=== PATIENT | female | born 1995 | race Caucasian/White ===

== ENCOUNTER 2025-01-01 15:58 | Inpatient (IN) | payer OTHER, SELFPAY ==
[2025-01-01] VITALS (64 sets, daily range): BP systolic 62–137; BP diastolic 26–84; PULSE 76–158; TEMP 36.3–36.7; O2SAT 93–100; BMI 38.0
--- OUTSIDE RECORDS SUMMARY | 2025-01-01 16:03 | XMS_ITS | Data Portability ---
Author Organization [facility] Address [address] [place] [address] Care Team Providers Care Chief Librarian Branch Or Department Name Role Phone TRACE RAMIREZ Primary Care Provider Unavailab le Assessment Encounter Date Assessment Date Assessment LastModified by Organization Details LastModified Time 03/28/2024 03/28/[address] Jacobo is her gyne. Eye exam: UTD jul 2023 Dental Exam UTD every 6 months labs were completed last year and normal will request records from [facility]. [email or web address] Not available 03/28/2024 09:14:08 Plan of Treatment Reminders Order Date Submit Date Provider Last Modified By Organization Details Last Modified Time Details Appointments None recorded. Lab celiac disease IgA + HLA typing + serology panel, blood or tissue 2023 024 [address] [facility], [address], [address] [address], [place], [address], 16:36:37 Referral None recorded. Procedures None recorded. Surgeries None recorded. Imaging None recorded. Medication Orders None recorded. Patient TargetsNo targets recorded. Patient InstructionsNo instructions recorded. Reason for Referral None Reported. Results Created Date Observation Date Name Description Value Unit Range Abnormal Flag Note LastModifiedBy Organization Detail LastModifiedTime 03/31/2004/01/2024 FREDERIC C DISEA SE COMPR EHENS RUSLAN deamidated gliadin abs, IgA 2 units 0-19 Negat ruslan 0 - 19 Weak Posit ruslan 20 - 30 Moder ate to Stron g Posit ruslan >30 Not Available [facility] ([facility]) [address] [facility], [place], [address], 04/03/2024 16:36:37 03/31/20 24 04/01/2024 FREDERIC C DISEA SE COMPR EHENS RUSLAN deamidated gliadin abs, IgG 2 units 0-19 Negat ruslan 0 - 19 Weak Posit ruslan 20 - 30 Moder ate to Stron g Posit ruslan >30 Not Available [facility] ([facility]) [address] [place], [address], 04/03/2024 16:36:37 03/31/20 24 04/01/2024 FREDERIC C DISEA SE COMPR EHENS RUSLAN T-transgluta minase (ttg) IgA <2 U/mL 0-3 Negat ruslan 0 - 3 Weak Posit ruslan 4 - 10 Posit ruslan >10 Tissu e Trans gluta indira e (tTG) has been ident ified as the endom ysial antig en. Studi es have demon str- ated that endom ysial IgA antib odies have over 99% speci ficit y for glute n sensi tive enter opath y. Not Available [facility] ([facility]) [address] [facility], [place], [address], 04/03/2024 16:36:37 03/31/20 24 04/01/2024 FREDERIC C DISEA SE COMPR EHENS RUSLAN T-transgluta minase (ttg) IgG 2 U/mL 0-5 Negat ruslan 0 - 5 Weak Posit ruslan 6 - 9 Posit ruslan >9 Not Available [facility] ([facility]) [address] [facility], [place], [address], 04/03/2024 16:36:37 03/31/20 24 04/01/2024 FREDERIC C DISEA SE COMPR EHENS RUSLAN immunoglobul in A, qn, serum 120 mg/dL 87-352 Not Available [facility] ([facility]) [address] [place], [address], 04/03/2024 16:36:37 03/31/20 24 04/03/2024 FREDERIC C DISEA SE COMPR EHENS RUSLAN endomysial antibody IgA NEGATI VE negati ve Not Available [facility] ([facility]) [address] [facility], [place], [address], 04/03/2024 16:36:37 Result Notes None recorded. Problems Name Problem SNOMED Code Status Onset Date Resolution Date Notes Provider Name and Address Organization Details Recorded Time Body mass index 25-29 - overweight 102826735 Active 024 LEATHA Adorno Attn: Mitra g,[address] [facility], [place], [address], [facility] 4 09:04:51 Problem Notes None recorded. Procedures Surgical History Date Name Laterality Status Provider Name and Address Organization Details Recorded Time Tonsillectomy completed Dimitri Emerson MA [facility] 03/28/2024 09:00:41 Imaging Results None recorded. Procedure Notes None recorded. Medical Equipment None Reported. Allergies No known drug allergies Medications Not known to be on any medication Vitals Date Recorded Body weight Body mass index (BMI) Body height Respiratory rate Oxygen saturation Oxygen saturation in Arterial blood by Pulse oximetry Heart rate Systolic blood pressure Diastolic blood pressure Provider Name and Address Organization Details Last Updated DateTime 4 35616.9 5 g 27.4 kg/m2 170.18 cm 18 /min 99 % 99 % 75 /min 122 mm[Hg] 82 mm[Hg] Dimitri Emerson MA [facility] 4 09:02:53 Date Recorded Systolic blood pressure Diastolic blood pressure Provider Name and Address Organization Details Last Updated DateTime 03/28/2024 104 mm[Hg] 80 mm[Hg] LEATHA Adorno Attn: Accounting,[address] [facility], [place], [address], [facility] 03/28/2024 09:21:19 Social History Question Answer Notes LastModified by Organizat ion Details LastModified Time Tobacco Smoking Status Never Smoker Dimitri Emerson MA null, [facility] 03/28/2024 09:00:09 Are You Blind Or Do You Have Difficulty Seeing? No Readers Information not available 03/28/2024 What Is Your Level Of Caffeine Consumption? Occasional Information not available 03/28/2024 In The 14 Days Before Symptom Onset, Have You Had Close Contact With A Laboratory-confir med COVID-19 While That Case Was Ill? No Information not available 03/28/2024 In The 14 Days Before Symptom Onset, Have You Had Close Contact With A Person Who Is Under Investigation For COVID-19 While That Person Was Ill? No Information not available 03/28/2024 Have You Been To An Area Known To Be High Risk For COVID-19? No Information not available 03/28/2024 Are You Deaf Or Do You Have Serious Difficulty Hearing? No Information not available 03/28/2024 What Type Of Diet Are You Following? REGULAR Information not available 03/28/2024 Are There Any Guns Present In Your Home? No Information not available 03/28/2024 What Was The Date Of Your Most Recent Tobacco Screening? 03/28/2024 Information not available 03/28/2024 Do You Use Your Seat Belt Or Car Seat Routinely? Yes Information not available 03/28/2024 Do You Have Smoke And Carbon Monoxide Detectors In Your Home? Yes Information not available 03/28/2024 Do You Use Sunscreen Routinely? Yes Information not available 03/28/2024 Has Tobacco Cessation Counseling Been Provided? Yes Information not available 03/28/2024 On What Date Was Tobacco Cessation Counseling Provided? 03/28/2024 Information not available 03/28/2024 Sex: Unknown Functional Status Question Answer Note LastModified by Organizat ion Details LastModified Time Do you use any illicit or recreational drugs? No Information not available 03/28/2024 Do you or have you ever used any other forms of tobacco or nicotine? No Information not available 03/28/2024 What is your level of alcohol consumption? Occasional Information not available 03/28/2024 Are you able to care for yourself? Yes Information n ot available 03/28/2024 What is your exercise level? Occasional Information not available 03/28/2024 Mental Status None recorded. Family History Relationship Description Onset Age of this Age Resolved Age Notes LastModified by Organization Details LastModified Time Sister Hypertensive disorder [email or web address] Not available 2023 08:59:51 Sister Polycystic ovary syndrome [email or web address] Not available 2023 08:59:59 Sister Asthma [email or web address] Not available 03/28/2024 09:06:06 Father Hypertensive disorder tcarterma Not available 2023 08:59:51 Mother Malignant tumor of breast tcarterma Not available 2023 09:06:14 Mother Malignant tumor of cervix tcarterma Not available 2023 09:06:35 Medical History Condition Response Anxiety Disorder Y GI Problems Y Gynecological History Statement/Question Response Flow Heavy Date of LMP 03/28/2024 Menses Monthly Y Duration of Flow (days) 7 Current Control Method None LMP Approximate Obstetrics History GPAL:G 0 P 0 0 0 0 Past Encounters Encounter ID Performer Location Encounter Start Date Encounter Closed Date Diagnosis/Indication Diagnosis SNOMED-CT Code Diagnosis ICD10 Code Diagnosis Note [id number] Williams Johnson MD [facility] [place] [address] [place] [address] 03/28/2024 08:51:02 03/28/2024 10:26:18 Body mass index 25-29 - overweight 468080624 Z68.27 bmi 27.4 Adult heal th examination 043780670 Z00.00 new pt wellness completed. Irritable bowel syndrome with diarrhea 841288319 K58.0 pt is interested in celiac screening. all other labs are UTD Health Concerns Section Related Observation LastModified by Organization Detai ls LastModified Time None Recorded Concern Status LastModified by Organization Details LastModified Time None Recorded Advance Directives Directive None Recorded Payers Encounter Date Sequence Insurance Name Policy Number Policy Lord Covered Member ID Lord Member ID Guarantor Name 03/28/2024 1 [place] [id number] [employer] ([employer]) [id number] Patience Hernandez [id number] Patience Christiansone Notes Date Note Type Note Provider Name and Address Organization Details Recorded Time 03/28/2024 text/html pt is here to establish with new PCP. She previously saws Philomena Murguia NP at [facility]. LEATHA Adorno Attn: Accounting,[address] [facility], [place], [address], [facility] 03/28/2024 09:31:31 OBGyn Episode No OBEpisode recorded.
--- OUTSIDE RECORDS SUMMARY | 2025-01-01 16:03 | XMS_ITS | Data Portability ---
Author Organization [facility], Main Office Address [address] [place] [address] Assessment Encounter Date Assessment Date Assessment LastModified by Organization Details LastModified Time 03/17/2023 03/17/2023 CECILIA OLEARY- 03/17/23 Call office if worse, ER for life-threatening illness RTC in 1 year and p.r.n. She voices understanding of plan and agree [email or web address] Not available 03/17/2023 17:18:25 Plan of Treatment Reminders Order Date Submit Date Provider Last Modified By Organization Details Last Modified Time Details Appointments None recorded . Lab lipid panel, serum 023 03/17/20 [place] [id number] [facility], [address], [place], [address], 3 08:49:25 HbA1c (hemoglo bin A1c), blood 023 03/17/20 [place] [address] [facility], [address], [place], [address], 3 08:49:25 CMP, serum or plasma 023 03/17/20 [place] [address] [facility], [address], [place], [address], 3 08:49:25 CBC w/ auto diff 023 03/17/20 [place] [facility], [address], [place], [address], 03:19:50 Referral None recorded . Procedures None recorded . Surgeries None recorded . Imaging None recorded . Medication Orders None recorded . Patient TargetsNo targets recorded. Patient Instructions Encounter Date Encounter Id Patient Instructions Last Modified By Organization Details Last Modified Time 03/17/2023 [id number] INFLUENZA VACCIN E TD/TDAP Recommended today, patient declined Ordered P atient will get at local pharmacy/health department MAMMOGRAM Recommended today, but patient declined Ordered N o screening indicated at this time/ no family history CERVICAL SCREENING/PELVIC EXAMINATION No screening necessary patient is up to date COLORECTAL SCREENING Recommended today, but patient declined Ordered C olonoscopy declined. Cologuard ordered No screening necessary until age 45 DEPRESSION SCREENING Negative BMI Overweight Appropr iate NUTRITION Continue healthy eating & exercise PHYSICAL ACTIVITY Appropriate Recommendation of 10-20 minutes of activity that causes mild breathlessness daily Recommendati on of 30 minutes of daily activity VISION Ordered Recommende d today ALCOHOL USE No alcohol use Occasional/Soc ial Use TOBACCO USE non smoker SEXUALLY ACTIVE Yes, Patient is in monogamous relationship GLUCOSE SCREENING Ordered LIPID SCREENING Ordered [email or web address] Not available 03/17/2023 17:19:39 Reason for Referral None Reported. Results Created Date Observation Date Name Description Value Unit Range Abnormal Flag Note LastModifiedBy Organization Detail LastModifiedTime Result Notes None recorded. Problems Name Problem SNOMED Code Status Onset Date Resolution Date Notes Provider Name and Address Organization Details Recorded Time Anxiety 24436418 Active 023 Philomena Murguia, RADHA-Carmen [address] [facility] [address], [place], [address] , [facility] [employer] [facility] 03/14/2023 20:09:41 Problem Notes None recorded. Procedures Surgical History Date Name Laterality Status Provider Name and Address Organization Details Recorded Time tonsilectom y/adenoids completed Not Available [facility] 10/22/2022 00:57:12 Imaging Results None recorded. Procedure Notes None recorded. Medical Equipment None Reported. Allergies No known drug allergies Medications Name Sig Start Date Stop Date Status Note LastModified by Organization Details LastModified Time mupirocin 2 % topical ointment APPLY TOPICALLY TO THE AFFECTED AREA TWICE DAILY 03/17 completed Not Available Not Available Not Available methylpredn isolone 4 mg tablets in a dose pack FOLLOW PACKAGE DIRECTION S 02/11 completed Not Available Not Available Not Available clonazepam 0.25 mg disintegrat ing tablet Place 1 tablet every day by transling ual route as needed. 03/17 completed Not Available Not Available Not Available ID NOW COVID-19 Test Kit TEST DIRECTED TODAY 02/11 completed Not Available Not Available Not Available Vitals Date Recorded Body mass index (BMI) Body height Oxygen saturation Oxygen saturation in Arterial blood by Pulse oximetry Heart rate Body temperature Body weight Systolic blood pressure Diastolic blood pressure Provider Name and Address Organization Details Last Updated DateTime 2 27.4 kg/m2 170.18 cm 98 % 98 % 96 /min 97.8 [degF] 34130.6 6 g 122 mm[Hg] 78 mm[Hg] Not Available [facility] 3 00:57:41 Date Recorded Body weight Body mass index (BMI) Body height Body temperature Heart rate Oxygen saturation Oxygen saturation in Arterial blood by Pulse oximetry Systolic blood pressure Diastolic blood pressure Provider Name and Address Organization Details Last Updated DateTime 3 90706.2 6 g 27.6 kg/m2 170.18 cm 98 [degF] 72 /min 99 % 99 % 124 mm[Hg] 72 mm[Hg] Charito Burt MA [place] [facility] 3 16:00:39 Social History Question Answer Notes LastModified by Organizat ion Details LastModified Time Tobacco Smoking Status Never Smoker Not Available [facility] 10/22/2022 00:57:05 What Is Your Level Of Caffeine Consumption? Occasional Information not available 03/17/2023 In The 14 Days Before Symptom Onset, Have You Had Close Contact With A Laboratory-confi rmed COVID-19 While That Case Was Ill? No Had Covid 01/21/2022 [id number] Information not available 10/22/2022 In The 14 Days Before Symptom Onset, Have You Had Close Contact With A Person Who Is Under Investigation For COVID-19 While That Person Was Ill? No MIGRATION.[id number] [id number] Information not available 10/22/2022 What Type Of Diet Are You Following? REGULAR MIGRATION.20844 79262 Information not available 10/22/2022 What Is The Highest Grade Or Level Of School You Have Completed Or The Highest Degree You Have Received? UH80023-0 MIGRATION.81808 84473 Information not available 10/22/2022 Have There Been Any Changes To Your Family Or Social Situation? No Information not available 03/17/2023 What Is The Fluoride Status Of Your Home? Unknown MIGRATION.79076 [id number] Information not available 10/22/2022 Are There Any Guns Present In Your Home? Yes MIGRATION.09229 75223 Information not available 10/22/2022 Do You Use Insect Repellent Routinely? No MIGRATION.14516 77011 Information not available 10/22/2022 Where Do You Live? SingleLevelHouse MIGRATION.88261 27079 Information not available 10/22/2022 What Was The Date Of Your Most Recent Tobacco Screening? 03/17/2023 Information not available 03/17/2023 Do You Have Any Pets? Yes MIGRATION.42117 30419 Information not available 10/22/2022 What Is Your Relationship Status? MIGRATION.35744 71705 Information not available 10/22/2022 Do You Use Your Seat Belt Or Car Seat Routinely? Yes MIGRATION.36183 51738 Information not available 10/22/2022 Do You Have Smoke And Carbon Monoxide Detectors In Your Home? Yes MIGRATION.07281 57718 Information not available 10/22/2022 Are You Passively Exposed To Smoke? No MIGRATION.82985 43869 Information not available 10/22/2022 Are There Any Smokers In Your House? No MIGRATION.82058 13976 Information not available 10/22/2022 Do You Use Sunscreen Routinely? Yes MIGRATION.34674 98709 Information not available 10/22/2022 Have You Recently Traveled Abroad? No [place]- Came Back 01-21-22 Information not available 03/17/2023 Do You Have Any Dietary Restrictions? No MIGRATION.78913 11296 Information not available 10/22/2022 Sex: Unknown Functional Status Question Answer Note LastModified by Organizat ion Details LastModified Time Do you use any illicit or recreational drugs? No MIGRATION.5706106 026 Information not available 10/22/2022 Do you or have you ever used any other forms of tobacco or nicotine? No Information not available 03/17/2023 What is your level of alcohol consumption? 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 Heavy MIGRATION.5223889 026 Information not available 10/22/2022 Mental Status Question Answer Note LastModified by Organizat ion Details LastModified Time Do you feel stressed (tense, restless, nervous, or anxious, or unable to sleep at night)? [id number] MIGRATION.[id number] 6 Information not available 10/22/2022 Family History Relationship Description Onset Age of this Age Resolved Age Notes LastModified by Organization Details LastModified Time Mother Malignant tumor of cervix [email or web address] Not available 2022 15:55:15 Mother Malignant tumor of breast [email or web address] Not available 2022 15:55:15 Father Hypertensive disorder [id number] Not available 10/22/2022 00:57:14 Sister Asthma [id number] Not available 10/22/2022 00:57:15 Medical History Condition Response NERVE DISEASE N BLINDNESS N RHEUMATIC FEVER N KIDNEY STONES N BLADDER PROBLEMS N MRSA N OTHER # 1 N POLIO N LUNG DISEASE/DISORDER N HISTORY OF DRUG ABUSE N COPD N RADIATION / CHEMOTHERAPY N Other # 2 N BLOOD DISEASES N EAR OR HEARING PROBLEMS N MUMPS N SHINGLES N BOWEL PROBLEMS N DEPRESSION (INCLUDING POST ) N STROKE/TIA N ULCERS N BENIGN PROSTATIC HYPERPLASIA N MEASLES N HYPOTENSION N MYOCARDIAL INFARCTION N OBESITY N GERD/NAUSEA N ANEURYSM N URINARY/BLADDER/KIDNEY PROBLEMS N CORONARY ARTERY DISEASE (CAD) N ADDICTION CONCERNS N ENDOMETRIOSIS N Impotence N USE OF BLOOD THINNERS N SKIN PROBLEMS N GASTROINTESTINAL DISORDER N PERIPHERAL VASCULAR DISEASE N MUSCLE,JOINT OR BONE PROBLEMS N GASTROINTESTINAL BLEEDING N BLOOD CLOTS N ASTHMA N CATARACTS N ERECTILE DYSFUNCTION N VARICOSITIES N GI PROBLEMS N Low Testosterone N INFERTILITY N AIDS/HIV N CHEMOTHERAPY / RADIATION N LIVER DISEASE N MALE HYPOGONADISM N HYPERTENSION N Deficiency N TOURETTE'S N ANXIETY DISORDER N BLOOD TRANSFUSION N ANEMIA/BLOOD DISORDER N CHRONIC EAR INFECTIONS N BRONCHITIS N TUBERCULOSIS N GLAUCOMA N FOOT PROBLEM N DIVERTICULITIS N CHICKENPOX N SLEEP APNEA N INFECTIOUS DISEASE N HEART ARRHYTHMIA N PROSTATE N INSOMNIA N HIGH CHOLESTEROL / HYPERLIPIDEMIA N HYPERTHYROIDISM N EYE PROBLEMS N EDEMA N CHRONIC PAIN SYNDROME N HYPOTHYROIDISM N CAROTID BLOCKAGE N CONSTIPATION N BACK / NECK PROBLEMS N HAVE YOU BEEN HOSPITALIZED OR SEEN IN [facility] IN THE PAST YEAR ? N ATHEROSCLEROSIS N BREAST PROBLEMS N DIALYSIS N ECZEMA N OSTEOPOROSIS N ARTHRITIS N NO SIGNIFICANT PAST MEDICAL HISTORY N APPENDICITIS N DIABETES, TYPE N BAD TEETH N ENT N HEARTBURN / REFLUX N AUTISM SPECTRUM DISORDER (ASD) N HEPATITIS / LIVER DISEASE N GOUT N SLEEP DISORDER N ALZHEIMER'S DISEASE N Brain Problems N HERPES N DEMENTIA N HEADACHES/MIGRAINES N SEIZURES/EPILEPSY N VASCULAR DISEASE N PACEMAKER N Blood Disorder N DIZZINESS N HEART DISEASE/HEART PROBLEMS N KIDNEY DISEASE N MULTIPLE SCLEROSIS N CARDIAC ARRHYTHMIA N CANCER: SPECIFY N ATRIAL FIBRILLATION N Gall Stones N PULMONARY EMBOLISM N AUTOIMMUNE DISEASE N Gynecological HistoryNo gynecological history recorded. Obstetrics History GPAL:G 0 P 0 0 0 0 Immunizations Vaccine Type Date Status Note Provider Nam e and Address Organization Details Recorded Time COVID-19, mRNA, LNP-S, PF, 30 mcg/0.3 mL dose 12/12/2020 completed Not Available [facility] 3 00:59:20 COVID-19, mRNA, LNP-S, PF, 30 mcg/0.3 mL dose 11/17/2020 completed Not Available [facility] 3 00:59:20 Past Encounters Encounter ID Performer Location Encounter Start Date Encounter Closed Date Diagnosis/Indication Diagnosis SNOMED-CT Code Diagnosis ICD10 Code Diagnosis Note [id number] Linnette brown MD [facility] Internal Med Valentín henderson [facility] [address] [place] [id number] 02/11/2022 00:00:00 02/11/2022 17:28:21 [id number] Linnette brown MD [facility] Internal Med Valentín henderson [facility] [address] [id number] 03/17/2023 15:49:23 03/17/2023 16:36:37 Adult health examination 060454895 Z00.01 Anxiety 60057242 F41.9 could not tolerate multiple SSRIs, tricyclics , or SNRIsOn Klonopin for rare p.r.n. use -she is aware of side effects, risks, and benefitsNo alcohol, driving, or mixing with other sedating medsCall office if any change in mood or behaviorSh e declines psychiatry referral todayCouns clotilde cole Cholesterol screening 27 2454349 Z13.220 Diabetes m ellitus screening 439675034 Z13.1 Depression screening 171 414288 Z13.31 Body mass index 25-29 - overweight 276072888 Z68.27 recommend healthy, well balanced mealsfocus on lean meats, fresh vegetables , fresh fruits, whole grainsredu ce fast/proce ssed foods or eating out to no more than 1-2 times per weekaim to get 30 min of exercise most days of the week- walking is a great choicealso recommend resistance training 2-3 times per week Health Concerns Section Related Observation LastModified by Organization Detai ls LastModified Time None Recorded Concern Status LastModified by Organization Details LastModified Time None Recorded Advance Directives Directive None Recorded Payers Encounter Date Sequence Insurance Name Policy Number Policy Lord Covered Member ID Lord Member ID Guarantor Name 03/17/2023 1 [facility] ([facility]) Jimmy Hernandez [id number] Patience Hernandez Notes Date Note Type Note Provider Name and Address Organization Details Recorded Time 03/17/2023 text/html Patience presents today for her annual wellness exam. She reports overall she has been feeling well and denies any new complaints. Her anxiety is well controlled off medication. She tells me she has not needed to take Klonopin since last summer. She denies any SI or HI today. She tells me she has backed off her HIT draining. She was doing this 5 days a week and now she has backed off to 3. The other 2 days she has been doing some weight training. She has been really enjoying this and has been feeling good since she added some strength training. She is due for labs. Philomena Murguia, MEDICAL TECH-C [address] [facility], [place], [address], [facility] [employer] 03/17/2023 17:20:19 OBGyn Episode No OBEpisode recorded.
--- NOTE | 2025-01-01 16:54 | P.PNAN_ITS ---
Anes - Eval Pre Procedure Procedure: Labor epidural Date/Time: 01/01/25 16:54 Surgeon: Donnell Preop Diagnosis: pain during labor Pre Op Diagnosis: IOL Patient Data Age: 29 Gender: F Height: Weight: Allergies Allergy/AdvReac Type Severity Reaction Status Date / Time No Known Allergies Allergy Verified 12/05/24 14:40 Home Medications Medication Instructions Recorded Confirmed Type vit no.95-ferrous 1 tablet PO DAILY 12/05/24 12/05/24 History fumarate 28 mg-folic acid 800 mcg tablet () Patient hx anesthesia problems: none Family hx anesthesia problems: none Results Review: All pre-operative results and documents have been reviewed as part of the pre- operative evaluation. PMFSH Past Medical History Medical History (Updated 01/01/25 @ 16:55 by Katrin Good CRNA) IUP (intrauterine ), incidental Family History Family History (Updated 12/05/24 @ 14:32 by Cely Gatica RN) Mother Breast cancer Cervical cancer Father Hypertension Sibling Hypertension Social History Social History Smoking status: Never smoker Alcohol intake: current Substance use: never Spiritual care concerns: No Exam Day of Procedure 01/01/25 16:54
[2025-01-01 18:04] LABS: Basophils Absolute Auto 0.1 K/mm3 (0.0-0.1); Basophils Percent Auto 0.4 % (0.2-1.2); Eosinophils Absolute Auto 0.4 K/mm3 (0-0.3); Eosinophils Percent Auto 2.9 % (0-4.4); Hematocrit 36.9 % (37.0-47.0); Immature Granulocyte Absolute 0.11 K/mm3 (0.00-0.031); Immature Granulocyte Percent A 0.8 % (0-0.5); Lymphocytes Absolute Auto 2.24 K/mm3 (0.9-3.2); Lymphocytes Percent Auto 16.7 % (18.3-44.2); Mean Corpuscular HGB Conc 32.5 g/dl (32-36); Mean Corpuscular Hemoglobin 28.2 pg (26-34); Mean Corpuscular Volume 86.8 fl (80-100); Mean Platelet Volume 8.5 fl (7.4-10.4); Monocytes Absolute Auto 1.6 K/mm3 (0.1-0.6); Monocytes Percent Auto 11.9 % (2.6-8.5); Neutrophils Absolute Auto 9.1 K/mm3 (1.3-6.7); Neutrophils Percent Auto 67.3 % (45.5-73.1); Platelet Count Result 220 k/mm3 (150-375); Red Blood Count 4.25 M/mm3 (4.2-5.4); Red Cell Distribution Width 14.1 % (11.5-14.5); White Blood Count 13.4 K/mm3 (4.5-10.0)
[2025-01-01 20:00] LABS: HIV 1/2 Ab P24 Ag Result Negative (Negative)
[2025-01-01 20:33] LABS: Syphilis IgG/IgM Antibody Negative (Negative)
[2025-01-01] MEDS: DINOPROSTONE 10 MG VAG INSERT VAGINAL (20:59)
--- NOTE | 2025-01-01 21:01 | LDADM ---
This patient, Patience Hernandez, was admitted to Labor/Delivery/Recovery 103 on 01/01/25 at 15:58. Plans for labor, pain management and were discussed with patient. Patient/family oriented to hospital policies and general routines including ID bracelet, bed and alarms, visiting hours, pain management, procedures, bathroom and other care routines, personal items, smoking policy, room service/diet and guest tray routines, security routines, and visiting hours. Patient/Family are encouraged to report perceived risks to care and to ask questions if they do not understand what they are told or what they should do. See OBIX for further documentation.
[2025-01-02] VITALS (230 sets, daily range): BP systolic 82–200; BP diastolic 33–169; PULSE 58–164; RESP 18; TEMP 36.3–36.8; O2SAT 96–100
[2025-01-02] MEDS: LACTATED RINGERS 1,000 ML 125 ML IV CONT ×3 (06:30→12:44)
[2025-01-02] MEDS: OXYTOCIN 30 UNITS/NS 500 ML 30 UNITS/500 ML BAG 6 UNITS IV CONT (08:24)
--- NOTE | 2025-01-02 09:00 | WPDOBADMIT ---
Obstetrics - Admit Note Admission Note: Late entry from 0530 on 01/02/25 record reviewed. Additions to the history and/or subsequent changes in the physical findings follow. 29 y/o G1 at 39 5/7 weeks here for induction of labor. Cervidil overnight. GBS neg. Feeling rare contractions. AVSS ABD soft, nontender, gravid, vertex EXT nontender Cervix 2/50/-2. AROM with clear fluid. Vertex. A: IUP at term, desiring induction of labor. P: Oxytocin. Anticipate .
--- NOTE | 2025-01-02 09:02 | PM.OBPNLAB ---
Pain Control Date/time seen: 01/02/25 09:02 Comfortable with epidural. Receiving oxytocin. AVSS NST reactive TOCO: contractions every 3-4 min Cervix 2-3/80/-2. IUPC placed. Continue labor.
--- NOTE | 2025-01-02 12:07 | PM.OBPNLAB ---
Pain Control Date/time seen: 01/02/25 12:07 Comfortable. AVSS NST reactive TOCO: contractions every 3-5 min Cervix 5-6//-1 Continue labor.
[2025-01-02] MEDS: ONDANSETRON INJ 4 MG/2 ML VIAL IV PUSH (13:43)
--- NOTE | 2025-01-02 17:59 | PM.OBPRVD ---
OB - Vaginal Delivery Note Procedure Delivery date: 01/02/25 Induction method: Per Cervidil Protocol Delivery augmentation: Rupture of Membranes and Pitocin Delivery monitor: External FHT, External Uterine and Internal Uterine Route of delivery: Episiotomy description: None Laceration Description: Perineal - 2nd Degree Delivery repair: vicryl (3-0) Specimen: Yes (cord blood) Quantitative Blood Loss (ml): 140 Anesthesia type: Epidural Disposition: PACU Complications: None Narrative: 29 y/o G1 at 39 5/7 weeks gestation who presented to the hospital for induction of labor. Cervidil was placed overnight, then withdrawn the following morning. Oxytocin was administered intravenously. Amniotomy was performed with return of clear fluid. She received an epidural for pain control. Her labor progressed and her cervix dilated completely. She pushed with good effort and delivered the 's head to the perineum, followed by the body. The nose and mouth were bulb suctioned. After a delay, the cord was clamped and cut. The was handed off the field. Cord blood was collected. The placenta delivered spontaneously and was grossly normal in appearance. The usual 3 vessel cord was noted. A second degree midline perineal laceration was sustained. This was reapproximated using 3 0 Vicryl in the usual layered fashion. Excellent hemostasis resulted as did excellent reapproximation of the normal anatomy. Needle and instrument counts were correct. The patient was taken to recovery room in stable condition. The went to the nursery in stable condition. I was present and scrubbed for the entire delivery. Baby Date of : 01/02/25 Time of : 17:38 Gestational Age by Date: 39 Infant gender: Female Weight (pounds): 9 Weight (ounces): 3 presentation: vertex position: Left Occiput Anterior Placenta delivery description: Spontaneous and Normal Configuration Cord Vessel Description: 3 Vessels and Delayed Cord Clamping score one minute: 8 score five minutes: 9
--- NOTE | 2025-01-02 18:01 | PM.OBDSVD ---
DS: Admitting Diagnosis Discharge Date 01/04/25 Admitting Diagnosis IUP at 39 5/7 weeks DS: Discharge Diagnosis Discharge Diagnosis (1) (normal spontaneous vaginal delivery): Code(s): O80 - Encounter for full-term uncomplicated delivery Status: Acute OB - DS: Summary OB Procedures : None OB Procedures Intrapartum: Spontaneous Vag Delivery OB Procedures: : None Peripartum Data Laceration Description: Perineal - 2nd Degree Episiotomy description: None Time Spent with Patient Time attestation: Total time spent providing and/or coordinating discharge services: DS: Data Data Completed and Pending Labs on day of discharge: Labs from last 24 hours 01/01/25 17:44 WBC 13.4 H RBC 4.25 Hgb 12.0 Hct 36.9 L MCV 86.8 MCH 28.2 MCHC 32.5 RDW 14.1 Plt Count 220 MPV 8.5 Immature Gran % (Auto) 0.8 H Neut % (Auto) 67.3 Lymph % (Auto) 16.7 L [place] % (Auto) 11.9 H Eos % (Auto) 2.9 Baso % (Auto) 0.4 Lymph # (Auto) 2.24 [place] # (Auto) 1.6 H Eos # (Auto) 0.4 H Baso # (Auto) 0.1 Abs Immat Gran (auto) 0.11 H Absolute Neuts (auto) 9.1 H Absolute Nucleated RBC 0.000 Nucleated RBC % 0.0 Syphilis IgG/IgM Ab Negative HIV 1&2 Ab/P24 Ag 4thGn Negative Blood Type A Positive Antibody Screen Negative Discharge Plan Discharge Attending physician on discharge: Jasper Jacobo Discharging Clinician: Jasper Jacobo Patient Disposition: Home Activity: pelvic rest Diet: regular Discharge Instructions: Call or return if temperature above 100.4° F, increased abdominal pain, increased vaginal bleeding or any new problems. Patient Language: German Stand Alone Forms: General Discharge Information Follow-up/Referrals: Jasper Jacobo MD [Physician] - 6 Weeks Discharge Medications: New ibuprofen 600 mg tablet 600 mg PO Q6H PRN (Reason: cramps) Qty: 30 0RF Continued PNV cmb#95-ferrous fumarate-FA [] 28 mg iron- 800 mcg tablet 1 tablet PO DAILY Date of admission: 01/01/25 15:58 Primary Care Provider: Rikki,Jane Admitting Provider: Jasper Jacobo Attending physician on admission: Jasper Jacobo Condition: Stable
[2025-01-02] MEDS: OXYTOCIN 30 UNITS/NS 500 ML 30 UNITS/500 ML BAG 125 UNITS IV CONT (18:09)
[2025-01-02] MEDS: ACETAMINOPHEN 325 MG TABLET 650 MG PO (18:12)
[2025-01-02] MEDS: IBUPROFEN 600 MG TABLET PO (21:19)
[2025-01-03 02:05] VITALS: BP 109/62; PULSE 72; PULSE 89; RESP 18; TEMP 36.9; O2SAT 98
[2025-01-03] MEDS: IBUPROFEN 600 MG TABLET PO ×2 (04:39→18:08)
[2025-01-03 05:02] LABS: Hematocrit 33.6 % (37.0-47.0)
--- NOTE | 2025-01-03 06:36 | PC.NURSE ---
Report given to Ani Dover RN.
[2025-01-03 08:45] VITALS: BP 131/72; PULSE 82; RESP 16; TEMP 36.4; O2SAT 98
--- NOTE | 2025-01-03 08:45 | OBPPTRN ---
Patient transferred to post room #290 via wheelchair. Support person present. Oriented to unit, room, information board, rooming in, admission packet and security measures. Patient verbalizes understanding.
[2025-01-03] MEDS: MULTIVIT/MIN/PREN/FOL AC/IRON TABLET 1 TAB PO (10:08)
[2025-01-03] MEDS: DOCUSATE SODIUM 100 MG CAPSULE PO ×2 (10:08→16:04)
[2025-01-03 12:24] VITALS: BP 117/72; PULSE 81; RESP 16; TEMP 36.8; O2SAT 98
--- NOTE | 2025-01-03 13:20 | PC.NURSE ---
Breast pump provided due to separation from infant. Instructions given on cleaning, care, usage, that there should be no pain, pumping schedule for milk production, collection, and storage of human milk. Patient was assessed for correct placement, flange size, to pump for comfort and nipple stretching/stimulation for adequate milk production every 3 hours (8 times in 24 hours) 1-2 times at night.
[2025-01-03] MEDS: ACETAMINOPHEN 325 MG TABLET 650 MG PO (13:23)
--- NOTE | 2025-01-03 14:47 | P.PNOB_ITS ---
OB - PN: Subj Subjective Date/time seen: 01/03/25 14:47 Narrative: Pain OK. OB - PN: Obj Data Labs 01/03/25 04:37 Labs: Laboratory Results - last 24 hr 01/03/25 04:37 Hgb 11.0 L Hct 33.6 L OB - PN A/P Plan day: 1 Comments: A: PPD#1, doing well. P: Routine care. Exam 2 Psych: Other: AVSS ABD soft, nontender, fundus firm EXT nontender
[2025-01-03 19:17] VITALS: BP 124/71; PULSE 78; RESP 16; TEMP 36.5; O2SAT 99
[2025-01-04 07:15] VITALS: BP 123/65; PULSE 94; RESP 16; TEMP 36.8; O2SAT 98
[2025-01-04] MEDS: MULTIVIT/MIN/PREN/FOL AC/IRON TABLET 1 TAB PO (08:23)
[2025-01-04] MEDS: DOCUSATE SODIUM 100 MG CAPSULE PO ×2 (08:23→16:48)
[2025-01-04] MEDS: IBUPROFEN 600 MG TABLET PO ×2 (09:58→15:38)
--- NOTE | 2025-01-04 10:30 | PC.NURSE ---
Introductions were made. Consulted with patient to assess needs related to . Mother states that she plans to exclusively pump and denies any questions at this time. Mother is familiar with pumping and will call this RN should any questions arise. RN updated.
--- NOTE | 2025-01-04 12:26 | P.PNOB_ITS ---
OB - PN: Subj Subjective Date/time seen: 01/04/25 12:26 Narrative: Pain OK. Would like to go home. OB - PN: Obj Data Labs 01/03/25 04:37 OB - PN A/P Plan day: 2 Comments: A: PPD#2, doing well. P: Home to f/u 6 weeks. Exam 2 Psych: Other: AVSS ABD soft, nontender, fundus firm EXT nontender
[2025-01-06 10:24] VITALS: BP 133/78; PULSE 98; RESP 18; TEMP 36.4; O2SAT 100
== END 2025-01-04 17:10 | disposition home or self-care (01) | DRG 807 ==
LOC: ANHLDR 01-02 18:02 → ANHOBPP 01-02 21:31 → ANHOB2 01-03 08:53
PROVIDERS: Admitting Provider Obstetrics & Gynecology; PCP Physician Assistant; Visit Provider Obstetrics & Gynecology
DX: O70.1 Second degree perineal laceration during delivery (principal); Z37.0 Single live birth; Z3A.39 39 weeks gestation of pregnancy
CPT/HCPCS: 36415; 85014; 85018; 85025; 86593; 86703; 86850; 86900; 86901; A9270; G0432; J2405; J2590; J2795; J7120